=== PATIENT | male | born 1965 | race African-American/Black ===

== ENCOUNTER → 2016-07-23 | Outpatient (CLI) | payer MEDICARE, MEDICAID ==
[~2016-07-23] MED LIST: BACL20TA PO; CYSTO CONRAY II 250 ML VIAL UR ONE; GABA300C10 PO; LACT10SO28 PO; LISI5TAB7 PO; MULT1TAB60 PO; OMEP20TA62 PO; PSYL0.5215 PO; SENN8.6T98 PO; SUCR1ORA2 PO; UBID10CA5 PO
== END | disposition home or self-care (01) ==
LOC: RAD 07:28
PROVIDERS: ATTEND Urology
DX: N39.0 Urinary tract infection, site not specified (principal); R33.9 Retention of urine, unspecified; N32.89 Other specified disorders of bladder
CPT/HCPCS: 74455; Q9958

== ENCOUNTER 2016-08-06 17:56 | Emergency (ER) | payer MEDICARE, MEDICAID ==
[~2016-08-06] VITALS: Ht 162.6 cm; Wt 60.1 kg
[~2016-08-06 17:56] MED LIST changes: -BACL20TA NG; +BACL20TA PO; -BENZOCAINE 20% SPRAY 0.5ML ONE; -GABA300C10 NG; -LACT20SO2 NG; -LIDOCAINE GEL 2%, 5ML ONE; -LISI5TAB7 NG; -LORA-446 NG; -MULT1TAB60 NG; -OMEP20TA62 NG; -OMNIPAQUE 300 MG/ML, 10ML VIAL ONE; -PSYL0.5215 NG; -SENN8.6T98 NG; -[UNRECOGNIZED DRUG - CODE] NG
[2016-08-06] MEDS ORDERED: LIDOCAINE GEL 2%, 5ML ONE (19:55)
[2016-08-06 21:33] VITALS: BP 114/75
== END 2016-08-06 21:35 | disposition home or self-care (01) ==
LOC: ED 21:16
DX: K94.23 Gastrostomy malfunction (principal); I10 Essential (primary) hypertension; K21.9 Gastro-esophageal reflux disease without esophagitis
CPT/HCPCS: 74000; 74340; 99284

== ENCOUNTER → 2016-08-06 | Outpatient (CLI) | payer MEDICARE, MEDICAID ==
[~2016-08-06] MED LIST changes: +BACL20TA NG; -BACL20TA PO; +BENZOCAINE 20% SPRAY 0.5ML ONE; -CYSTO CONRAY II 250 ML VIAL UR ONE; +GABA300C10 NG; +LACT20SO2 NG; +LIDOCAINE GEL 2%, 5ML ONE; +LISI5TAB7 NG; +LORA-446 NG; +MULT1TAB60 NG; +OMEP20TA62 NG; +OMNIPAQUE 300 MG/ML, 10ML VIAL ONE; +PSYL0.5215 NG; +SENN8.6T98 NG; +[UNRECOGNIZED DRUG - CODE] NG
== END | disposition home or self-care (01) ==
LOC: RAD 11:58
PROVIDERS: ATTEND Internal Medicine
DX: G11.9 Hereditary ataxia, unspecified (principal)
CPT/HCPCS: 74340; Q9967

== ENCOUNTER 2016-08-08 11:07 | Emergency (ER) | payer MEDICARE, MEDICAID ==
[~2016-08-08] VITALS: Ht 175.3 cm; Wt 60.0 kg
[~2016-08-08 11:07] MED LIST changes: +BACL20TA NG; -BACL20TA PO
[2016-08-08 11:10] VITALS: BP 122/88
== END 2016-08-08 14:41 | disposition home or self-care (01) ==
LOC: ED 11:36
DX: Z46.59 Encounter for fitting and adjustment of other gastrointestinal appliance and device (principal); I10 Essential (primary) hypertension; K21.9 Gastro-esophageal reflux disease without esophagitis
CPT/HCPCS: 74000; 99284

== ENCOUNTER 2016-08-11 11:32 | Inpatient (IN) | payer MEDICARE, MEDICAID ==
[~2016-08-11] VITALS: Ht 175.3 cm; Wt 53.3 kg
[2016-08-11 12:42] LABS: BLOOD UREA NITROGEN 30 mg/dL (7-18)
[2016-08-11 12:46] LABS: ASPARTATE AMINO TRANSFERASE 62 U/L (15-37)
[2016-08-11 12:47] LABS: DIFF TOTAL CELLS COUNTED 100 CELL DIFF
[2016-08-11 12:49] LABS: VERIFY COUNTS? YES
[2016-08-11] MEDS ORDERED: SODIUM CHLORIDE 0.9% 1,000ML IVBOLUS ONE ×3 (15:00→16:00)
[2016-08-11] MEDS ORDERED: [UNRECOGNIZED DRUG - CODE] NG (15:33)
[2016-08-11] MEDS ORDERED: LORA-446 NG (15:33)
[2016-08-11] MEDS ORDERED: MULT1TAB60 NG (15:33)
[2016-08-11] MEDS ORDERED: LACT20SO2 NG (15:33)
[2016-08-11] MEDS ORDERED: GABA300C10 NG (15:33)
[2016-08-11] MEDS ORDERED: LISI5TAB7 NG (15:33)
[2016-08-11] MEDS ORDERED: SENN8.6T98 NG (15:33)
[2016-08-11] MEDS ORDERED: PSYL0.5215 NG (15:33)
[2016-08-11] MEDS ORDERED: OMEP20TA62 NG (15:33)
[2016-08-11] MEDS ORDERED: VANCOMYCIN 1,200 MG in SODIUM CHLORIDE 0.9% 250 ML IV ONE (17:00)
[2016-08-11] MEDS ORDERED: VANCOMYCIN PER PHARMACY MC ONE (17:00)
[2016-08-11] MEDS ORDERED: PIPERACILLIN/TAZO/PMX 3.375GM 50 ML IV ONE (17:00)
[2016-08-11] MEDS ORDERED: SODIUM CHLORIDE 0.9% 1,000 ML IV ONE (17:29)
[2016-08-11] MEDS ORDERED: SODIUM CHLORIDE FLUSH 10ML SYR IVF PRN (17:30)
[2016-08-11] MEDS ORDERED: DEXTROSE 50%, 50ML SYRINGE ONE (17:58)
[2016-08-11] MEDS ORDERED: DEXTROSE 50%, 50ML SYRINGE IVPush ONE (18:00)
[2016-08-11] MEDS ORDERED: PHENYTOIN SODIUM 1,000 MG in SODIUM CHLORIDE 0.9% 100 ML IVPB ONE (18:00)
[2016-08-11] MEDS ORDERED: LORazepam 2 MG/ML, 1ML IVPush ONE (18:00)
[2016-08-11] MEDS ORDERED: FILTER 0.22 MICRON IV ONE (18:00)
[2016-08-11] MEDS ORDERED: LORazepam 2 MG/ML, 1ML ONE (18:10)
[2016-08-11] MEDS ORDERED: SODIUM BICARB IV SCH (20:00)
[2016-08-11] MEDS: PIPERACILLIN/TAZO/PMX 3.375GM 50 ML IV SCH (20:00)
[2016-08-11] MEDS ORDERED: VANCOMYCIN PER PHARMACY MC PRN (20:00)
[2016-08-11] MEDS ORDERED: [UNRECOGNIZED DRUG - OTHER] IV SCH (20:00)
[2016-08-11] MEDS ORDERED: POTASSIUM CHLORIDE IV SCH (20:00)
[2016-08-11] MEDS ORDERED: ACETAMINOPHEN 325 MG TABLET PO PRN (20:00)
[2016-08-11] MEDS ORDERED: ONDANSETRON 2MG/ML, 2ML IVP PRN (20:00)
[2016-08-11 20:02] LABS: ABG COLLECTION SITE LEFT RADIAL; COLLATERAL CIRCULATION TESTING NORMAL
[2016-08-11] MEDS ORDERED: PIPERACILLIN/TAZO/PMX 3.375GM 50 ML ONE (20:04)
[2016-08-11 20:20] LABS: GLUCOSE, CSF 97 mg/dL (40-80)
[2016-08-11] MEDS ORDERED: LEVETIRACETAM 1,000 MG in SODIUM CHLORIDE 0.9% 100 ML IV ONE (20:30)
[2016-08-11] MEDS ORDERED: GABAPENTIN 300 MG CAPSULE PO SCH (21:00)
[2016-08-11] MEDS ORDERED: SUCRALFATE 1 GM/10 ML UDC PO SCH (21:00)
[2016-08-11] MEDS ORDERED: BACLOFEN 40 MG NG SCH (21:00)
[2016-08-11] MEDS ORDERED: LACTULOSE 20 GM/30 ML UDC NG SCH (21:00)
[2016-08-11 22:00] VITALS: BP 124/85
[2016-08-11] MEDS ORDERED: PHARMACOKINETIC CONSULTATION MC ONE (22:30)
[2016-08-11] MEDS ORDERED: PHARMACOKINETIC MONITORING MC PRN (22:30)
[2016-08-11] MEDS: FAMOTIDINE 20 MG/2 ML IV SCH (22:34)
[2016-08-11] MEDS: LORazepam 2 MG/ML, 1ML IVPush PRN (22:34)
[2016-08-11 23:07] LABS: BLOOD UREA NITROGEN 26 mg/dL (7-18)
[2016-08-12] MEDS: LORazepam 2 MG/ML, 1ML IVPush PRN ×2 (01:24→07:53)
[2016-08-12] MEDS: SODIUM CHLORIDE 0.9% 1,000 ML IV SCH ×4 (02:55→19:14)
[2016-08-12] MEDS: PIPERACILLIN/TAZO/PMX 3.375GM 50 ML IV SCH ×4 (02:55→20:57)
[2016-08-12 04:00] VITALS: BP 107/74
[2016-08-12 04:51] LABS: ASPARTATE AMINO TRANSFERASE 215 U/L (15-37); BLOOD UREA NITROGEN 23 mg/dL (7-18)
[2016-08-12 05:00] LABS: DIFF TOTAL CELLS COUNTED 100 CELL DIFF
[2016-08-12 05:02] LABS: VERIFY COUNTS? YES
[2016-08-12] MEDS: FAMOTIDINE 20 MG/2 ML IV SCH ×2 (08:29→21:32)
[2016-08-12] MEDS ORDERED: MULTIVITAMIN 1 TABLET NG SCH (09:00)
[2016-08-12] MEDS ORDERED: [UNRECOGNIZED DRUG - OTHER] NG SCH (09:00)
[2016-08-12] MEDS ORDERED: FIBER NG SCH (09:00)
[2016-08-12] MEDS ORDERED: TEMPLATE NON-FORMULARY MED. (Psyllium Husk** (Metamucil**) 0.52 GM) NG SCH (09:00)
[2016-08-12] MEDS ORDERED: LACTOSE FREE FOOD NG SCH (09:00)
[2016-08-12] MEDS: MORPHINE SULFATE 4 MG/ML, 1ML IVPush PRN ×4 (09:33→20:57)
[2016-08-12] MEDS: VANCOMYCIN PMX 1GM/200ML 200 ML IV SCH ×2 (10:38→21:38)
[2016-08-12] MEDS ORDERED: VANCOMYCIN 1,200 MG in SODIUM CHLORIDE 0.9% 250 ML IV SCH (16:00)
[2016-08-13] MEDS: MORPHINE SULFATE 4 MG/ML, 1ML IVPush PRN ×3 (01:08→09:19)
[2016-08-13] MEDS: PIPERACILLIN/TAZO/PMX 3.375GM 50 ML IV SCH ×4 (01:08→20:27)
[2016-08-13] MEDS: LORazepam 2 MG/ML, 1ML IVPush PRN ×2 (01:34→13:45)
[2016-08-13] MEDS: SODIUM CHLORIDE 0.9% 1,000 ML IV SCH (03:41)
[2016-08-13 04:00] VITALS: BP 125/83
[2016-08-13 04:46] LABS: BLOOD UREA NITROGEN 15 mg/dL (7-18)
[2016-08-13 05:05] LABS: ASPARTATE AMINO TRANSFERASE 148 U/L (15-37)
[2016-08-13 05:22] LABS: DIFF TOTAL CELLS COUNTED 100 CELL DIFF
[2016-08-13 05:24] LABS: VERIFY COUNTS? YES
[2016-08-13 05:25] LABS: ANISOCYTOSIS 1+
[2016-08-13 05:26] LABS: POIKILOCYTOSIS 1+
[2016-08-13] MEDS: FAMOTIDINE 20 MG/2 ML IV SCH (08:00)
[2016-08-13] MEDS ORDERED: D5%-0.45% NACL 1,000 ML IV SCH ×2 (08:30→08:39)
[2016-08-13] MEDS: VANCOMYCIN PMX 1GM/200ML 200 ML IV SCH ×2 (09:23→22:13)
[2016-08-13] MEDS: FENTANYL PF 2,500 MCG in SODIUM CHLORIDE 0.9% 200 ML IV PRN (10:27)
[2016-08-13] MEDS ORDERED: TPN PER PHARMACY MC PRN (12:00)
[2016-08-13] MEDS ORDERED: FILTER, DISP 1.2 MICRON FOR TPN/PVN IV PRN (14:30)
[2016-08-13] MEDS ORDERED: NACL IV SCH ×2 (15:00)
[2016-08-13] MEDS ORDERED: D5 IV SCH ×2 (15:00)
[2016-08-13] MEDS ORDERED: POTASSIUM PHOSPHATE IV SCH ×2 (15:00)
[2016-08-13] MEDS ORDERED: [UNRECOGNIZED DRUG - OTHER] IV SCH (17:00)
[2016-08-13] MEDS ORDERED: DEXTROSE 50%, 50ML SYRINGE IVPush PRN (17:00)
[2016-08-13] MEDS ORDERED: DEXTROSE 70% IV SCH (17:00)
[2016-08-13] MEDS ORDERED: AMINO ACID 10% IV SCH (17:00)
[2016-08-13] MEDS ORDERED: DEXTROSE 10% 500 ML IV PRN (17:00)
[2016-08-13] MEDS ORDERED: FAT EMULSIONS IV SCH (17:00)
[2016-08-13] MEDS: INSULIN REGULAR MEDIUM DOSE Q6H X 48HRS SQ-INSULIN SCH (21:00)
[2016-08-14] MEDS: LORazepam 2 MG/ML, 1ML IVPush PRN ×2 (00:42→23:35)
[2016-08-14] MEDS: D5%-0.45% NACL 1,000 ML IV SCH (00:55)
[2016-08-14] MEDS: PIPERACILLIN/TAZO/PMX 3.375GM 50 ML IV SCH ×4 (02:07→20:00)
[2016-08-14] MEDS: INSULIN REGULAR MEDIUM DOSE Q6H X 48HRS SQ-INSULIN SCH ×4 (02:56→21:00)
[2016-08-14 04:00] VITALS: BP 107/74
[2016-08-14 05:04] LABS: ASPARTATE AMINO TRANSFERASE 91 U/L (15-37); BLOOD UREA NITROGEN 8 mg/dL (7-18)
[2016-08-14 05:12] LABS: DIFF TOTAL CELLS COUNTED 100 CELL DIFF
[2016-08-14 05:14] LABS: ANISOCYTOSIS 1+; POIKILOCYTOSIS 1+; VERIFY COUNTS? YES
[2016-08-14] MEDS: VANCOMYCIN PMX 1GM/200ML 200 ML IV SCH (14:58)
[2016-08-14] MEDS ORDERED: [UNRECOGNIZED DRUG - OTHER] IV SCH (17:00)
[2016-08-14] MEDS ORDERED: FAT EMULSIONS IV SCH (17:00)
[2016-08-14] MEDS ORDERED: AMINO ACID 10% IV SCH (17:00)
[2016-08-14] MEDS ORDERED: DEXTROSE 70% IV SCH (17:00)
[2016-08-14] MEDS: FENTANYL PF 2,500 MCG in SODIUM CHLORIDE 0.9% 200 ML IV PRN (20:37)
[2016-08-14] MEDS: MEROPENEM 1 GM in SODIUM CHLORIDE 0.9% 50 ML IV SCH (22:33)
[2016-08-14] MEDS: ACETAMINOPHEN 650 MG SUPP PR PRN (23:08)
[2016-08-15] MEDS ORDERED: PIPERACILLIN/TAZO/PMX 3.375GM 50 ML IV SCH (01:00)
[2016-08-15] MEDS: INSULIN REGULAR MEDIUM DOSE Q6H X 48HRS SQ-INSULIN SCH ×3 (03:00→17:24)
[2016-08-15] MEDS: D5%-0.45% NACL 1,000 ML IV SCH (03:18)
[2016-08-15] MEDS: VANCOMYCIN PMX 1GM/200ML 200 ML IV SCH ×2 (03:20→15:15)
[2016-08-15 03:55] LABS: BLOOD UREA NITROGEN 10 mg/dL (7-18)
[2016-08-15 04:00] VITALS: BP 92/58
[2016-08-15 05:45] LABS: ASPARTATE AMINO TRANSFERASE 50 U/L (15-37)
[2016-08-15] MEDS: MEROPENEM 1 GM in SODIUM CHLORIDE 0.9% 50 ML IV SCH ×2 (05:54→14:19)
[2016-08-15] MEDS: LORazepam 2 MG/ML, 1ML IVPush PRN ×3 (06:03→20:53)
[2016-08-15] MEDS ORDERED: FAT EMULSIONS IV SCH (17:00)
[2016-08-15] MEDS ORDERED: AMINO ACID 10% IV SCH (17:00)
[2016-08-15] MEDS ORDERED: [UNRECOGNIZED DRUG - OTHER] IV SCH (17:00)
[2016-08-15] MEDS ORDERED: DEXTROSE 70% IV SCH (17:00)
[2016-08-15] MEDS: MEROPENEM 1 GM in SODIUM CHLORIDE 0.9% 100 ML IV SCH (21:59)
[2016-08-16] MEDS: VANCOMYCIN PMX 1GM/200ML 200 ML IV SCH ×2 (02:54→15:47)
[2016-08-16] MEDS: LORazepam 2 MG/ML, 1ML IVPush PRN ×5 (03:17→17:41)
[2016-08-16] MEDS: FENTANYL PF 2,500 MCG in SODIUM CHLORIDE 0.9% 200 ML IV PRN (03:18)
[2016-08-16 04:00] VITALS: BP 141/89
[2016-08-16 05:33] LABS: ASPARTATE AMINO TRANSFERASE 32 U/L (15-37); BLOOD UREA NITROGEN 11 mg/dL (7-18)
[2016-08-16] MEDS: MEROPENEM 1 GM in SODIUM CHLORIDE 0.9% 100 ML IV SCH ×3 (05:46→21:57)
[2016-08-16] MEDS: D5%-0.45% NACL 1,000 ML IV SCH (05:49)
[2016-08-16] MEDS: INSULIN REGULAR MEDIUM DOSE QDAY SQ-INSULIN SCH (09:00)
[2016-08-16] MEDS: ACETAMINOPHEN 650 MG SUPP PR PRN ×2 (13:22→21:24)
[2016-08-16] MEDS ORDERED: [UNRECOGNIZED DRUG - OTHER] IV SCH (17:00)
[2016-08-16] MEDS ORDERED: DEXTROSE 70% IV SCH (17:00)
[2016-08-16] MEDS ORDERED: FAT EMULSIONS IV SCH (17:00)
[2016-08-16] MEDS ORDERED: AMINO ACID 10% IV SCH (17:00)
[2016-08-17] MEDS: VANCOMYCIN PMX 1GM/200ML 200 ML IV SCH ×2 (03:04→15:08)
[2016-08-17] MEDS: LORazepam 2 MG/ML, 1ML IVPush PRN ×5 (03:40→20:44)
[2016-08-17 04:00] VITALS: BP 147/80
[2016-08-17 05:48] LABS: BLOOD UREA NITROGEN 12 mg/dL (7-18)
[2016-08-17] MEDS: FENTANYL PF 2,500 MCG in SODIUM CHLORIDE 0.9% 200 ML IV PRN (06:11)
[2016-08-17] MEDS: MEROPENEM 1 GM in SODIUM CHLORIDE 0.9% 100 ML IV SCH ×3 (06:17→22:04)
[2016-08-17] MEDS: INSULIN REGULAR MEDIUM DOSE QDAY SQ-INSULIN SCH (08:25)
[2016-08-17] MEDS: D5%-0.45% NACL 1,000 ML IV SCH (15:10)
[2016-08-17] MEDS ORDERED: ACETAMINOPHEN 650 MG/20.3 ML UDC ONE (15:58)
[2016-08-17] MEDS ORDERED: DEXTROSE 70% IV SCH (17:00)
[2016-08-17] MEDS ORDERED: [UNRECOGNIZED DRUG - OTHER] IV SCH (17:00)
[2016-08-17] MEDS ORDERED: FAT EMULSIONS IV SCH (17:00)
[2016-08-17] MEDS ORDERED: AMINO ACID 10% IV SCH (17:00)
[2016-08-17] MEDS: ACETAMINOPHEN 650 MG SUPP PR PRN (22:04)
[2016-08-18] MEDS: LORazepam 2 MG/ML, 1ML IVPush PRN ×7 (00:34→22:15)
[2016-08-18] MEDS: VANCOMYCIN PMX 1GM/200ML 200 ML IV SCH (02:51)
[2016-08-18] MEDS: ACETAMINOPHEN 650 MG SUPP PR PRN (03:11)
[2016-08-18 04:00] VITALS: BP 140/82
[2016-08-18 04:49] LABS: BLOOD UREA NITROGEN 13 mg/dL (7-18)
[2016-08-18] MEDS: FENTANYL PF 2,500 MCG in SODIUM CHLORIDE 0.9% 200 ML IV PRN (04:59)
[2016-08-18] MEDS: MEROPENEM 1 GM in SODIUM CHLORIDE 0.9% 100 ML IV SCH (06:00)
[2016-08-18] MEDS: INSULIN REGULAR MEDIUM DOSE QDAY SQ-INSULIN SCH (09:55)
[2016-08-18] MEDS ORDERED: ACETAMINOPHEN 650 MG/20.3 ML UDC NG PRN (10:30)
[2016-08-18] MEDS ORDERED: [UNRECOGNIZED DRUG - OTHER] IV SCH (17:00)
[2016-08-18] MEDS ORDERED: FAT EMULSIONS IV SCH (17:00)
[2016-08-18] MEDS ORDERED: DEXTROSE 70% IV SCH (17:00)
[2016-08-18] MEDS ORDERED: AMINO ACID 10% IV SCH (17:00)
[2016-08-19] MEDS: FENTANYL PF 2,500 MCG in SODIUM CHLORIDE 0.9% 200 ML IV PRN ×2 (00:11→12:38)
[2016-08-19] MEDS: LORazepam 2 MG/ML, 1ML IVPush PRN ×2 (02:00→06:41)
[2016-08-19 08:00] VITALS: BP 95/55
[2016-08-19 12:00] VITALS: BP 98/59
[2016-08-19 18:00] VITALS: BP 96/56
[2016-08-20] MEDS: FENTANYL PF 2,500 MCG in SODIUM CHLORIDE 0.9% 200 ML IV PRN ×2 (01:27→14:25)
[2016-08-20] MEDS: LORazepam 2 MG/ML, 1ML IVPush PRN ×2 (21:20→23:46)
[2016-08-21] MEDS: OCULAR LUBRICANT OPHTH OINT 3.5 GM EACHEYE PRN ×2 (01:46→06:14)
[2016-08-21] MEDS: FENTANYL PF 2,500 MCG in SODIUM CHLORIDE 0.9% 200 ML IV PRN (04:00)
[2016-08-21] MEDS: LORazepam 2 MG/ML, 1ML IVPush PRN ×2 (06:14→08:41)
== END 2016-08-21 12:59 | disposition expired | DRG 871 ==
LOC: ED 11:52 → EDIP 17:29 → CCU 21:54 → ICU 08-20 03:32
PROVIDERS: ADMIT Hospitalist; ATTEND Hospitalist
PROC: 0T9B70Z Drainage of Bladder with Drainage Device, Via Natural or Artificial Opening (ICD-10-PCS; principal; 2016-08-11)
PROC: 009U3ZX Drainage of Spinal Canal, Percutaneous Approach, Diagnostic (ICD-10-PCS; 2016-08-11)
PROC: 02HV33Z Insertion of Infusion Device into Superior Vena Cava, Percutaneous Approach (ICD-10-PCS; 2016-08-13)
PROC: B548ZZA Ultrasonography of Superior Vena Cava, Guidance (ICD-10-PCS; 2016-08-13)
DX: A41.9 Sepsis, unspecified organism (principal); G92 Toxic encephalopathy; R65.21 Severe sepsis with septic shock; E43 Unspecified severe protein-calorie malnutrition; J69.0 Pneumonitis due to inhalation of food and vomit; E87.2 Acidosis; N17.9 Acute kidney failure, unspecified; D68.9 Coagulation defect, unspecified; G11.9 Hereditary ataxia, unspecified; N39.0 Urinary tract infection, site not specified; M62.82 Rhabdomyolysis; N13.30 Unspecified hydronephrosis; Z68.1 Body mass index [BMI] 19.9 or less, adult; K55.9 Vascular disorder of intestine, unspecified; I10 Essential (primary) hypertension; E87.6 Hypokalemia; K21.9 Gastro-esophageal reflux disease without esophagitis; N31.9 Neuromuscular dysfunction of bladder, unspecified; K59.00 Constipation, unspecified; B95.2 Enterococcus as the cause of diseases classified elsewhere; Z51.5 Encounter for palliative care; B96.4 Proteus (mirabilis) (morganii) as the cause of diseases classified elsewhere; B95.62 Methicillin resistant Staphylococcus aureus infection as the cause of diseases classified elsewhere; E86.1 Hypovolemia; Z66 Do not resuscitate; Z88.8 Allergy status to other drugs, medicaments and biological substances
CPT/HCPCS: 36415; 36569; 36600; 70450; 71010; 74000; 74176; 76937; 77001; 80048; 80053; 80202; 81001; 82436; 82550; 82570; 82803; 82945; 82962; 83605; 83735; 84100; 84133; 84134; 84145; 84157; 84300; 84478; 85025; 85610; 85730; 87040; 87070; 87077; 87081; 87086; 87147; 87186; 87205; 87252; 89051; 93005; 93308; 93321; 93325; 96361; 96365; 96366; 96367; 96375; J0610; J1953; J2185; J2543; J3010; J3370; J3475; J3480; C1751; J2060; J3420; J7030; J7050; S0028